=== PATIENT | female | born 1975 | race Caucasian/White ===

== ENCOUNTER 2017-11-16 16:22 | Inpatient (IN) | payer MEDICAID, OTHER ==
[~2017-11-16] VITALS: Ht 172.7 cm; Wt 83.1 kg
[2017-11-16] MEDS ORDERED: METH10 PO (17:36)
[2017-11-16 17:47] LABS: BASOPHILS % (AUTO) 0.8 % (0.0-2.0); EOSINOPHILS % (AUTO) 4.3 % (1.0-6.0); HEMATOCRIT 36.2 % (36-46); HEMOGLOBIN 11.9 g/dL (12.0-16.0); LYMPHOCYTES # (AUTO) 3.3 K/uL (1.0-4.8); LYMPHOCYTES % (AUTO) 40.7 % (22.0-44.0); MEAN CORPUSCULAR HEMOGLOBIN 27.4 pg (26.0-34.0); MEAN CORPUSCULAR VOLUME 83 fL (80-100); MONOCYTES # (AUTO) 0.7 K/uL (0.1-1.0); MONOCYTES % (AUTO) 8.5 % (2.0-9.0); NEUTROPHILS # (AUTO) 3.7 K/uL (1.8-7.7); NEUTROPHILS % (AUTO) 45.7 % (40.0-70.0); PLATELET COUNT (AUTO) 244 K/uL (150-450); RED BLOOD CELL COUNT(AUTO) 4.37 MIL/uL (4.00-5.20); RED CELL DISTRIBUTION WIDTH 13.2 % (11.5-14.5)
[2017-11-16 17:54] LABS: ANION GAP 3 mmol/L (8-16); CARBON DIOXIDE 32 mmol/L (22-29); CHLORIDE 103 mmol/L (98-107); CREATININE 0.88 mg/dL (0.60-1.30); GLOMERULAR FILTR. RATE CALC > 60 mL/min (>60); GLUCOSE,RANDOM 100 mg/dL (70-110); POTASSIUM 3.8 mmol/L (3.5-5.1); SODIUM SERUM 138 mmol/L (136-145); UREA NITROGEN, BLOOD 16 mg/dL (7-18)
[2017-11-16 18:00] LABS: ALANINE AMINOTRANSFERASE 52 U/L (12-78); ALBUMIN 3.6 g/dL (3.4-5.0); ALKALINE PHOSPHATASE 84 U/L (46-116); ASPARTATE AMINOTRANSFERASE 83 U/L (15-37); BILIRUBIN,TOTAL 0.3 mg/dL (0.1-1.0); TOTAL PROTEIN, SERUM 7.7 g/dL (6.4-8.2)
[2017-11-16] MEDS ORDERED: TUBERCULIN, PURIFIED PROTEIN DERIVATIVE 5 TU/0.1 ML SYG ID ONE (18:30)
[2017-11-16] MEDS ORDERED: ACETAMINOPHEN 325 MG TABLET PO PRN ×2 (18:30→20:30)
[2017-11-16] MEDS ORDERED: HydrOXYzine PAMOATE 50 MG CAPSULE PO PRN (18:30)
[2017-11-16] MEDS ORDERED: LOPERAMIDE HCL 2 MG CAPSULE PO PRN (18:30)
[2017-11-16] MEDS ORDERED: MAGNESIUM HYDROXIDE SUSPENSION 30 ML UDCUP PO PRN (18:30)
[2017-11-16] MEDS ORDERED: PROMETHAZINE HCL 25 MG TABLET PO PRN (18:30)
[2017-11-16] MEDS ORDERED: MAG HYDROX/AL HYDROX/SIMETH ES 30 ML SUSPENSION UDCUP PO PRN (18:30)
[2017-11-16] MEDS ORDERED: GuaiFENesin/D-METHORPHAN [SUGAR-FREE] 200-20MG/10 ML SYRUP UDCUP PO PRN (18:30)
[2017-11-16] MEDS ORDERED: QUEtiapine FUMARATE 100 MG TABLET PO PRN (18:30)
[2017-11-16 18:31] LABS: AMPHET/METH SCREEN,URINE POSITIVE (NEGATIVE); BARBITURATE SCREEN, URINE NEGATIVE (NEGATIVE); BENZODIAZEPINES SCREEN,URINE NEGATIVE (NEGATIVE); CANNABINOID SCREEN,URINE NEGATIVE (NEGATIVE); COCAINE SCREEN,URINE NEGATIVE (NEGATIVE); METHADONE SCREEN, URINE POSITIVE (NEGATIVE); OPIATE SCREEN,URINE POSITIVE (NEGATIVE)
[2017-11-16 18:36] LABS: APPEARANCE,URINE CLOUDY (CLEAR); BILIRUBIN,URINE NEGATIVE (NEGATIVE); GLUCOSE, URINE (UA) NEGATIVE (NEGATIVE); KETONES,URINE NEGATIVE (NEGATIVE); LEUKOCYTE ESTERASE ,URINE NEGATIVE (NEGATIVE); NITRATE,URINE NEGATIVE (NEGATIVE); OCCULT BLOOD,URINE TRACE (NEGATIVE); PH,URINE 5.5 (5.0-8.0); PROTEIN,URINE NEGATIVE (NEGATIVE); UROBILINOGEN,URINE 0.2 mg/dL (<=1.0)
[2017-11-16 18:39] LABS: PHENCYCLIDINE SCREEN,URINE NEGATIVE (NEGATIVE)
[2017-11-16 18:47] LABS: RBC,URINE 0-2 /HPF (0-2)
[2017-11-16 18:48] LABS: BACTERIA,URINE Few /HPF (None Seen); MUCUS,URINE Moderate LPF (None Seen); SQUAMOUS EPITHELIAL CELL,UR Moderate /LPF (None Seen)
[2017-11-16 19:02] LABS: HCG,QUANTITATIVE < 1 mIU/mL (0-6)
[2017-11-16 21:09] VITALS: BP 126/60
[2017-11-16] MEDS: ZOLPIDEM TARTRATE 10 MG TABLET PO PRN (21:16)
[2017-11-16] MEDS: GABAPENTIN 100 MG CAPSULE PO SCH (21:16)
[2017-11-16] MEDS: THIAMINE HCL 100 MG TABLET PO SCH (21:28)
[2017-11-17] MEDS: MULTIVITAMINS WITH MINERALS, THERAPEUTIC TABLET PO SCH (08:05)
[2017-11-17] MEDS: GABAPENTIN 100 MG CAPSULE PO SCH ×4 (08:05→21:00)
[2017-11-17] MEDS: NICOTINE 7 MG/24 HOUR PATCH TD SCH (08:05)
[2017-11-17] MEDS: DULoxetine HCL 20 MG CAPSULE PO SCH (08:05)
[2017-11-17] MEDS: THIAMINE HCL 100 MG TABLET PO SCH ×2 (08:05→16:27)
[2017-11-17] MEDS: FOLIC ACID 1 MG TABLET PO SCH (08:05)
[2017-11-17 08:28] LABS: BASOPHILS % (AUTO) 0.9 % (0.0-2.0); EOSINOPHILS % (AUTO) 5.3 % (1.0-6.0); HEMATOCRIT 35.3 % (36-46); HEMOGLOBIN 11.6 g/dL (12.0-16.0); LYMPHOCYTES # (AUTO) 3.1 K/uL (1.0-4.8); LYMPHOCYTES % (AUTO) 50.5 % (22.0-44.0); MEAN CORPUSCULAR HEMOGLOBIN 27.3 pg (26.0-34.0); MEAN CORPUSCULAR HGB CONC 32.8 G/dL (31.0-37.0); MEAN CORPUSCULAR VOLUME 83 fL (80-100); MONOCYTES # (AUTO) 0.6 K/uL (0.1-1.0); MONOCYTES % (AUTO) 10.4 % (2.0-9.0); NEUTROPHILS % (AUTO) 32.9 % (40.0-70.0); PLATELET COUNT (AUTO) 209 K/uL (150-450); RED BLOOD CELL COUNT(AUTO) 4.24 MIL/uL (4.00-5.20); RED CELL DISTRIBUTION WIDTH 13.3 % (11.5-14.5)
[2017-11-17] MEDS ORDERED: METHADONE HCL 10 MG TABLET PO SCH (09:00)
[2017-11-17 09:27] LABS: ALANINE AMINOTRANSFERASE 40 U/L (12-78); ALBUMIN 2.9 g/dL (3.4-5.0); ALKALINE PHOSPHATASE 70 U/L (46-116); ANION GAP 3 mmol/L (8-16); ASPARTATE AMINOTRANSFERASE 48 U/L (15-37); BILIRUBIN,TOTAL 0.2 mg/dL (0.1-1.0); CALCIUM, TOTAL 8.6 mg/dL (8.8-10.5); CARBON DIOXIDE 32 mmol/L (22-29); CHLORIDE 106 mmol/L (98-107); CHOL/HDL RATIO 3.1 (3.9-5.7); CHOLESTEROL 161 mg/dL (131-200); FREE T4 (FREE THYROXINE) 1.01 ng/dL (0.76-1.46); GLOMERULAR FILTR. RATE CALC > 60 mL/min (>60); GLUCOSE,RANDOM 94 mg/dL (70-110); HDL CHOLESTEROL 52 mg/dL (40-60); LDL CHOL (CALC.) 98 mg/dL (0-130); POTASSIUM 4.2 mmol/L (3.5-5.1); SODIUM SERUM 141 mmol/L (136-145); TOTAL PROTEIN, SERUM 6.6 g/dL (6.4-8.2); TRIGLYCERIDES 56 mg/dL (15-150)
[2017-11-17 09:28] LABS: PREGNANCY RESULT, SERUM NEGATIVE (NEGATIVE)
[2017-11-17 09:45] LABS: UREA NITROGEN, BLOOD 13 mg/dL (7-18)
[2017-11-17 13:21] VITALS: BP 100/60
[2017-11-17 15:44] LABS: RAPID PLASMA REAGIN NONREACTIVE (NONREACTIVE)
[2017-11-17 16:02] VITALS: BP 112/68
[2017-11-17] MEDS: LORazepam 2 MG TABLET PO PRN (16:37)
[2017-11-18 04:27] VITALS: BP 149/90
[2017-11-18] MEDS: IBUPROFEN 400 MG TABLET PO PRN (04:30)
[2017-11-18] MEDS: LORazepam 2 MG TABLET PO PRN ×2 (04:30→16:37)
[2017-11-18] MEDS: FERROUS SULFATE 325 MG EC TABLET PO SCH ×3 (06:24→17:09)
[2017-11-18 08:21] VITALS: BP 106/64
[2017-11-18] MEDS: DULoxetine HCL 20 MG CAPSULE PO SCH (09:05)
[2017-11-18] MEDS: MULTIVITAMINS WITH MINERALS, THERAPEUTIC TABLET PO SCH (09:06)
[2017-11-18] MEDS: GABAPENTIN 100 MG CAPSULE PO SCH ×4 (09:06→20:28)
[2017-11-18] MEDS: FOLIC ACID 1 MG TABLET PO SCH (09:06)
[2017-11-18] MEDS: THIAMINE HCL 100 MG TABLET PO SCH ×2 (09:06→17:09)
[2017-11-18] MEDS: NICOTINE 7 MG/24 HOUR PATCH TD SCH (09:06)
[2017-11-18] MEDS: METHADONE HCL 10 MG/5 ML SOLUTION ORAL.SYG PO SCH (09:19)
[2017-11-18 16:29] VITALS: BP 120/66
[2017-11-19] MEDS: FERROUS SULFATE 325 MG EC TABLET PO SCH ×3 (06:02→16:16)
[2017-11-19 07:31] VITALS: BP 110/62
[2017-11-19] MEDS ORDERED: DULoxetine HCL 20 MG CAPSULE PO SCH (09:00)
[2017-11-19 09:45] VITALS: BP 110/65
[2017-11-19] MEDS: MULTIVITAMINS WITH MINERALS, THERAPEUTIC TABLET PO SCH (09:47)
[2017-11-19] MEDS: THIAMINE HCL 100 MG TABLET PO SCH ×2 (09:47→16:16)
[2017-11-19] MEDS: FOLIC ACID 1 MG TABLET PO SCH (09:47)
[2017-11-19] MEDS: GABAPENTIN 100 MG CAPSULE PO SCH ×3 (09:47→16:16)
[2017-11-19] MEDS: NICOTINE 7 MG/24 HOUR PATCH TD SCH (09:48)
[2017-11-19] MEDS: METHADONE HCL 10 MG/5 ML SOLUTION ORAL.SYG PO SCH (09:50)
[2017-11-19] MEDS: DULoxetine HCL 30 MG CAPSULE PO SCH (10:30)
[2017-11-19] MEDS ORDERED: BACITRACIN 28.4 GM OINTMENT TP PRN (11:30)
[2017-11-19 16:02] VITALS: BP 114/60
[2017-11-20 02:08] VITALS: BP 105/62
[2017-11-20] MEDS: ZOLPIDEM TARTRATE 10 MG TABLET PO PRN ×2 (02:46→20:56)
[2017-11-20] MEDS: IBUPROFEN 400 MG TABLET PO PRN (02:46)
[2017-11-20] MEDS: FERROUS SULFATE 325 MG EC TABLET PO SCH ×3 (06:33→16:54)
[2017-11-20] MEDS ORDERED: DULoxetine HCL 30 MG CAPSULE PO SCH (09:00)
[2017-11-20 09:05] VITALS: BP 100/53
[2017-11-20] MEDS: DULoxetine HCL 30 MG CAPSULE PO SCH (09:15)
[2017-11-20] MEDS: MULTIVITAMINS WITH MINERALS, THERAPEUTIC TABLET PO SCH (09:15)
[2017-11-20] MEDS: THIAMINE HCL 100 MG TABLET PO SCH ×2 (09:15→16:29)
[2017-11-20] MEDS: GABAPENTIN 100 MG CAPSULE PO SCH ×3 (09:15→16:30)
[2017-11-20] MEDS: FOLIC ACID 1 MG TABLET PO SCH (09:16)
[2017-11-20] MEDS: NICOTINE 7 MG/24 HOUR PATCH TD SCH (09:16)
[2017-11-20] MEDS: METHADONE HCL 10 MG/5 ML SOLUTION ORAL.SYG PO SCH (09:40)
[2017-11-20] MEDS: LORazepam 0.5 MG TABLET PO PRN (10:29)
[2017-11-20 16:15] VITALS: BP 111/69
[2017-11-21 00:20] VITALS: BP 107/60
[2017-11-21] MEDS: LORazepam 0.5 MG TABLET PO PRN ×3 (00:24→17:16)
[2017-11-21] MEDS: IBUPROFEN 400 MG TABLET PO PRN (00:24)
[2017-11-21] MEDS: FERROUS SULFATE 325 MG EC TABLET PO SCH ×3 (06:35→17:16)
[2017-11-21 08:13] VITALS: BP 104/62
[2017-11-21] MEDS: MULTIVITAMINS WITH MINERALS, THERAPEUTIC TABLET PO SCH (09:23)
[2017-11-21] MEDS: NICOTINE 7 MG/24 HOUR PATCH TD SCH (09:23)
[2017-11-21] MEDS: GABAPENTIN 100 MG CAPSULE PO SCH ×3 (09:23→17:16)
[2017-11-21] MEDS: DULoxetine HCL 30 MG CAPSULE PO SCH (09:23)
[2017-11-21] MEDS: THIAMINE HCL 100 MG TABLET PO SCH ×2 (09:24→17:54)
[2017-11-21] MEDS: METHADONE HCL 10 MG/5 ML SOLUTION ORAL.SYG PO SCH (09:24)
[2017-11-21] MEDS: FOLIC ACID 1 MG TABLET PO SCH (09:24)
[2017-11-21 16:12] VITALS: BP 113/66
[2017-11-21] MEDS: ZOLPIDEM TARTRATE 10 MG TABLET PO PRN (21:09)
[2017-11-22 02:53] VITALS: BP 109/66
[2017-11-22] MEDS: LORazepam 0.5 MG TABLET PO PRN ×2 (02:57→20:15)
[2017-11-22] MEDS: IBUPROFEN 400 MG TABLET PO PRN ×3 (02:57→20:15)
[2017-11-22] MEDS: FERROUS SULFATE 325 MG EC TABLET PO SCH ×3 (06:51→16:28)
[2017-11-22 08:09] VITALS: BP 105/63
[2017-11-22] MEDS: DULoxetine HCL 30 MG CAPSULE PO SCH (09:05)
[2017-11-22] MEDS: THIAMINE HCL 100 MG TABLET PO SCH ×2 (09:05→16:31)
[2017-11-22] MEDS: GABAPENTIN 300 MG CAPSULE PO SCH ×3 (09:05→16:28)
[2017-11-22] MEDS: FOLIC ACID 1 MG TABLET PO SCH (09:05)
[2017-11-22] MEDS: MULTIVITAMINS WITH MINERALS, THERAPEUTIC TABLET PO SCH (09:05)
[2017-11-22] MEDS: NICOTINE 7 MG/24 HOUR PATCH TD SCH (09:07)
[2017-11-22] MEDS: METHADONE HCL 10 MG/5 ML SOLUTION ORAL.SYG PO SCH (09:12)
[2017-11-22] MEDS ORDERED: BENZOCAINE 20% 11.9 GM GEL TP PRN (11:00)
[2017-11-22] MEDS ORDERED: BENZOCAINE 10% 7 GM GEL TP PRN (11:30)
[2017-11-22 16:35] VITALS: BP 119/64
[2017-11-22 20:14] VITALS: BP 115/85
[2017-11-22] MEDS: ZOLPIDEM TARTRATE 10 MG TABLET PO PRN (21:55)
[2017-11-23 06:37] VITALS: BP 117/81
[2017-11-23] MEDS: FERROUS SULFATE 325 MG EC TABLET PO SCH ×3 (06:43→17:05)
[2017-11-23] MEDS: IBUPROFEN 400 MG TABLET PO PRN ×2 (06:43→20:55)
[2017-11-23 07:45] VITALS: BP 122/76
[2017-11-23] MEDS: GABAPENTIN 300 MG CAPSULE PO SCH ×2 (08:06→12:38)
[2017-11-23] MEDS: LORazepam 0.5 MG TABLET PO PRN (08:06)
[2017-11-23] MEDS: FOLIC ACID 1 MG TABLET PO SCH (08:06)
[2017-11-23] MEDS: MULTIVITAMINS WITH MINERALS, THERAPEUTIC TABLET PO SCH (08:06)
[2017-11-23] MEDS: NICOTINE 7 MG/24 HOUR PATCH TD SCH (08:07)
[2017-11-23] MEDS: THIAMINE HCL 100 MG TABLET PO SCH ×2 (08:07→17:07)
[2017-11-23] MEDS: DULoxetine HCL 60 MG CAPSULE PO SCH (08:32)
[2017-11-23] MEDS: METHADONE HCL 10 MG/5 ML SOLUTION ORAL.SYG PO SCH (08:32)
[2017-11-23 08:39] VITALS: BP 95/62
[2017-11-23 08:43] VITALS: BP 115/60
[2017-11-23 16:23] VITALS: BP 113/67
[2017-11-23] MEDS ORDERED: GABA-531 PO (16:42)
[2017-11-23] MEDS ORDERED: DULO60CA44 PO (16:42)
[2017-11-23] MEDS ORDERED: DISU500T PO (16:42)
[2017-11-23] MEDS: GABAPENTIN 400 MG CAPSULE PO SCH (17:36)
[2017-11-23 20:50] VITALS: BP 112/69
[2017-11-23] MEDS: ZOLPIDEM TARTRATE 10 MG TABLET PO PRN (21:28)
[2017-11-24 03:15] VITALS: BP 100/62
[2017-11-24] MEDS: FERROUS SULFATE 325 MG EC TABLET PO SCH (06:37)
[2017-11-24] MEDS ORDERED: FERR-89 PO (07:51)
[2017-11-24] MEDS: FOLIC ACID 1 MG TABLET PO SCH (08:33)
[2017-11-24] MEDS: METHADONE HCL 10 MG/5 ML SOLUTION ORAL.SYG PO SCH (08:33)
[2017-11-24] MEDS: MULTIVITAMINS WITH MINERALS, THERAPEUTIC TABLET PO SCH (08:33)
[2017-11-24] MEDS: GABAPENTIN 400 MG CAPSULE PO SCH (08:33)
[2017-11-24] MEDS: DULoxetine HCL 60 MG CAPSULE PO SCH (08:33)
[2017-11-24] MEDS: THIAMINE HCL 100 MG TABLET PO SCH (08:33)
[2017-11-24] MEDS: NICOTINE 7 MG/24 HOUR PATCH TD SCH (08:34)
[2017-11-24 09:13] VITALS: BP 108/57
== END 2017-11-24 10:30 | disposition home or self-care (01) | DRG 751 ==
LOC: EMS 16:25 → B3A 18:48
PROVIDERS: ADMIT Psychiatry & Neurology Psychiatry; ATTEND Psychiatry & Neurology Psychiatry
DX: F33.2 Major depressive disorder, recurrent severe without psychotic features (principal); R45.851 Suicidal ideations; F11.20 Opioid dependence, uncomplicated; Z91.19 Patient's noncompliance with other medical treatment and regimen; D64.9 Anemia, unspecified; R74.0 Nonspecific elevation of levels of transaminase and lactic acid dehydrogenase [LDH]; F41.9 Anxiety disorder, unspecified; G47.00 Insomnia, unspecified; F15.10 Other stimulant abuse, uncomplicated; F10.10 Alcohol abuse, uncomplicated; F17.210 Nicotine dependence, cigarettes, uncomplicated; Z65.3 Problems related to other legal circumstances; Z88.0 Allergy status to penicillin; Z88.8 Allergy status to other drugs, medicaments and biological substances; Z71.41 Alcohol abuse counseling and surveillance of alcoholic; Z71.6 Tobacco abuse counseling
CPT/HCPCS: 80074; 83036; 84439; 84443; 86592; 99285; G0480